=== PATIENT | female | born 1945 | race Asian ===

== ENCOUNTER 2019-06-23 12:48 | Emergency (ER) | payer MEDICARE, MEDICAID ==
[~2019-06-23] VITALS: Ht 154.9 cm; Wt 52.7 kg
[~2019-06-23 12:48] MED LIST: ASCO500 PO; CA C1TAB99 PO; FISH1CAP27 PO; HYDR-3831 PO; LIDE560S TD
[2019-06-23] MEDS ORDERED: METO25XL PO (13:14)
[2019-06-23] MEDS ORDERED: LIDOCAINE 5% TRANSDERMAL PATCH TD ONE (13:30)
[2019-06-23] MEDS ORDERED: IBUPROFEN 400 MG TABLET PO ONE (13:45)
[2019-06-23] MEDS ORDERED: FISH1 PO (13:51)
[2019-06-23] MEDS ORDERED: FLUO60SO3 TP (13:51)
[2019-06-23 14:43] VITALS: BP 141/79
== END 2019-06-23 15:03 | disposition home or self-care (01) ==
LOC: EMS 12:49
DX: M25.462 Effusion, left knee (principal); I10 Essential (primary) hypertension; L40.9 Psoriasis, unspecified; Z79.899 Other long term (current) drug therapy
CPT/HCPCS: 29530

== ENCOUNTER → 2024-05-18 | Emergency (ER) | payer MEDICARE, MEDICAID ==
[~2024-05-18] VITALS: Ht 152.4 cm; Wt 53.2 kg
[~2024-05-18] MED LIST changes: +FISH1 PO; -FISH1CAP27 PO; +FLUO60SO3 TP; +FOLI-130 PO; -LIDE560S TD; +METH2.5T47 PO; +METO25XL PO
[2024-05-18 06:58] VITALS: BP 155/83; PULSE 86; RESP 13; TEMP 98.4; O2SAT 97
[2024-05-18 07:14] LABS: COVID AG,FIA SOURCE NASAL SWAB
[2024-05-18 08:10] LABS: SARS-COV2 (COVID) ANTIGEN,FIA Negative (Negative)
[2024-05-18 08:11] LABS: INFLUENZA TYPE A NEGATIVE FOR TYPE A (NEGATIVE); INFLUENZA TYPE B NEGATIVE FOR TYPE B (NEGATIVE)
== END | disposition still patient (30) ==
LOC: EMS 06:46
DX: J06.9 Acute upper respiratory infection, unspecified (principal); I10 Essential (primary) hypertension; Z20.822 Contact with and (suspected) exposure to COVID-19
CPT/HCPCS: 87804; 99283